=== PATIENT | female | born 2005 | race Caucasian/White ===

== ENCOUNTER 2024-12-30 12:44 | Emergency (ER) | payer MEDICAID ==
[~2024-12-30] VITALS: Ht 170.2 cm; Wt 118.0 kg
[2024-12-30 13:32] VITALS: O2SAT 98
[2024-12-30] MEDS ORDERED: VENL75CA56 MT (14:11)
[2024-12-30 14:29] VITALS: BP 155/84; PULSE 75; RESP 20; TEMP 36.8; O2SAT 98
== END 2024-12-30 14:50 | disposition home or self-care (01) ==
LOC: ER 12:44
DX: F41.9 Anxiety disorder, unspecified (principal); Z76.0 Encounter for issue of repeat prescription; Z79.899 Other long term (current) drug therapy
CPT/HCPCS: 99281